=== PATIENT | female | born 1945 | race Caucasian/White ===

== ENCOUNTER → 2021-09-22 | Outpatient (CLI) | payer MEDICARE ==
--- NOTE | 2021-09-23 13:52 | MM ---
Reason for exam: screening (asymptomatic). Last mammogram was performed 19 years and 7 months ago. History: Patient is postmenopausal. Family history of breast cancer. Took estrogen for 3 years. Physical Findings: A clinical breast exam by your physician is recommended on an annual basis and results should be correlated with mammographic findings. MG 3D Screening Mammo W/Cad Bilateral CC and MLO view(s) were taken. No prior studies available for comparison. There are scattered fibroglandular densities. Finding: There is a 7 mm obscured oval mass in the middle, central position of the right breast. Focal asymmetry left central middle depth. ASSESSMENT: Incomplete: need additional imaging evaluation, BI-RAD 0 RECOMMENDATION: Special view mammogram of both breasts. If lesion persists on supplemental views, image directed ultrasound is recommended. [facility] will attempt to contact patient to return for supplemental views and ultrasound if indicated.
== END | disposition home or self-care (01) ==
LOC: RADMAMWWP 09:06
PROVIDERS: ATTEND Family Medicine
DX: Z12.31 Encounter for screening mammogram for malignant neoplasm of breast (principal); Z78.0 Asymptomatic menopausal state; Z80.3 Family history of malignant neoplasm of breast
CPT/HCPCS: 77063; 77067

== ENCOUNTER → 2021-09-28 | Outpatient (CLI) | payer MEDICARE ==
--- NOTE | 2021-09-29 10:11 | MM ---
Reason for exam: additional evaluation requested from abnormal screening. Last mammogram was performed less than 1 month ago. History: Patient is postmenopausal. Family history of breast cancer. Took estrogen for 3 years. Physical Findings: Nurse did not find any significant physical abnormalities on exam. MG 3D Work Up W/Cad FREDO Bilateral spot compression CC, spot compression MLO, and LM view(s) were taken. Prior study comparison: September 22, 2021, bilateral MG 3d screening mammo w/cad. There are scattered fibroglandular densities. Right 6mm oval nodule 9 o'clock along the retroareolar plane. Left small low density nodularity 4 o'clock, suspected small intramammary lymph nodes. These results were verbally communicated with the patient and result sheet given to the patient on 09/28/21. ASSESSMENT: Incomplete: need additional imaging evaluation, BI-RAD 0 RECOMMENDATION: Ultrasound of both breasts.
--- NOTE | 2021-09-29 10:12 | USB ---
Reason for exam: additional evaluation requested from abnormal screening. History: Patient is postmenopausal. Family history of breast cancer. Took estrogen for 3 years. US Breast Workup Limited FREDO Right limited breast ultrasound including focal area of concern, retroareolar and axilla demonstrates no cystic or solid lesion seen. Left limited breast ultrasound including focal area of concern, retroareolar and axilla demonstrates no cystic or solid lesion seen. Right breast scanned 8-10 o'clock, left breast scanned 3-5 o'clock. These results were verbally communicated with the patient and result sheet given to the patient on 09/28/21. ASSESSMENT: Probably benign, BI-RAD 3 RECOMMENDATION: Follow-up diagnostic mammogram of both breasts in 6 months.
== END | disposition home or self-care (01) ==
LOC: RADMAMWWP 14:15
PROVIDERS: ATTEND Family Medicine
DX: R92.8 Other abnormal and inconclusive findings on diagnostic imaging of breast (principal); Z78.0 Asymptomatic menopausal state; Z80.3 Family history of malignant neoplasm of breast
CPT/HCPCS: 77066; 76642; G0279; 77062

== ENCOUNTER 2021-10-06 11:03 | Day surgery (SDC) | payer MEDICARE ==
[2021-10-05 08:51] VITALS: BMI 31.3
[~2021-10-06 11:03] MED LIST: LACTATED RINGERS 1,000 ML IV SCH
[2021-10-06 11:32] VITALS: RESP 16; TEMP 97.3
[2021-10-06 11:32] LABS: Glucose,Whole Blood 107 mg/dL (75-99)
[2021-10-06] MEDS ORDERED: PROPOFOL 10 MG/ML 20 ML VIAL IV ONE (12:12)
--- NOTE | 2021-10-06 12:25 | P.PCN ---
Date of Procedure: 10/06/21 Procedure(s) Performed: BRIEF HISTORY: Patient is a 76-year-old pleasant female scheduled for an elective colonoscopy as a part of screening for colorectal neoplasia. Her last colonoscopy was 10 years ago. PROCEDURE PERFORMED: Colonoscopy. PREOPERATIVE DIAGNOSIS: Screening for colon cancer. IV sedation per Anesthesia. PROCEDURE: After informed consent was obtained, the patient, was brought into the endoscopy unit. IV sedation was administered by Anesthesia under continuous monitoring. Digital rectal examination was normal. Initially the Olympus CF-160 flexible video colonoscope was then inserted in the rectum, gradually advanced into the cecum without any difficulty. Careful examination was performed as the scope was gradually being withdrawn. Ileocecal valve and the appendiceal orifice were visualized and appeared normal. Prep was excellent. Mucosa of the cecum, ascending colon, transverse colon, descending colon, sigmoid colon, and rectum appeared normal. Retroflexion was performed in the rectum and no lesions were seen. The patient tolerated the procedure well. IMPRESSION: Normal-appearing colon from rectum to cecum with no evidence of colorectal neoplasia . RECOMMENDATIONS: Findings of this examination were discussed with the patient as well as her family. She was advised to have a repeat screening colonoscopy in 10 years..
[2021-10-06 12:44] VITALS: BP 122/68; PULSE 62
== END 2021-10-06 13:00 | disposition home or self-care (01) ==
LOC: ORWHC2ENDO 11:03
PROVIDERS: ATTEND Internal Medicine Gastroenterology
DX: Z12.11 Encounter for screening for malignant neoplasm of colon (principal); I10 Essential (primary) hypertension; E78.5 Hyperlipidemia, unspecified; E11.9 Type 2 diabetes mellitus without complications; K21.9 Gastro-esophageal reflux disease without esophagitis; Z90.49 Acquired absence of other specified parts of digestive tract; Z90.710 Acquired absence of both cervix and uterus; Z98.890 Other specified postprocedural states; Z79.84 Long term (current) use of oral hypoglycemic drugs; Z79.82 Long term (current) use of aspirin; Z79.899 Other long term (current) drug therapy; Z88.0 Allergy status to penicillin; Z88.2 Allergy status to sulfonamides
CPT/HCPCS: J2704; G0121

== ENCOUNTER 2023-01-07 15:04 | Inpatient (IN) | payer MEDICARE ==
[2023-01-07] MEDS ORDERED: SODIUM CHLORIDE 0.9% 1,000 ML IV STA ×2 (16:33→19:18)
[2023-01-07] MEDS ORDERED: ONDANSETRON 4 MG/2 ML VIAL IVP STA (16:33)
[2023-01-07] MEDS ORDERED: HYDROmorphone 0.5 MG/0.5 ML SYRINGE IVP STA (16:38)
[2023-01-07 17:04] LABS: Basophils % (A) 0 %; Eosinophils # (A) 0.1 k/uL (0-0.7); Eosinophils % (A) 1 %; HCT 44.7 % (34.0-46.0); HGB 15.2 gm/dL (11.4-16.0); Lymphocytes # (A) 0.7 k/uL (1.0-4.8); Lymphocytes % (A) 6 %; MCH 30.8 pg (25.0-35.0); MCHC 34.1 g/dL (31.0-37.0); MCV 90.5 fL (80.0-100.0); Mean Platelet Volume 7.6; Monocytes # (A) 0.5 k/uL (0-1.0); Monocytes % (A) 4 %; Neutrophils # (A) 11.2 k/uL (1.3-7.7); Neutrophils % (A) 89 %; Platelet Count 236 k/uL (150-450); RBC 4.94 m/uL (3.80-5.40); RDW 12.6 % (11.5-15.5); WBC 12.6 k/uL (3.8-10.6)
[2023-01-07 17:21] LABS: Albumin 4.2 g/dL (3.5-5.0); Calcium 9.7 mg/dL (8.4-10.2); Potassium 4.1 mmol/L (3.5-5.1); Total Bilirubin 1.6 mg/dL (0.2-1.3); Total Protein 7.1 g/dL (6.3-8.2)
--- NOTE | 2023-01-07 18:33 | CT ---
EXAMINATION TYPE: CT abdomen pelvis w con CT DLP: 655.2 mGycm, Automated exposure control for dose reduction was used. DATE OF EXAM: 01/07/2023 6:09 PM COMPARISON: None. CLINICAL INDICATION:Female, 77 years old with history of lower abd pain; lower abdominal pain TECHNIQUE: Axial CT of the abdomen and pelvis. Sagittal and coronal reformats were created on a [employer] workstation. Contrast used:100 mL of Isovue 300 with IV Contrast, Oral contrast used: without Oral Contrast FINDINGS: LOWER CHEST: Unremarkable ABDOMEN LIVER: Unremarkable GALLBLADDER AND BILE DUCTS: The gallbladder surgically absent. Possible dropped gallstone near the ga llbladder fossa peripherally calcified measuring up to 8 mm. PANCREAS: Unremarkable. SPLEEN: Unremarkable. ADRENAL GLANDS: Unremarkable. KIDNEYS AND URETERS: No evidence of hydronephrosis or renal calculus. The ureters are unremarkable. PELVIS BLADDER: Unremarkable REPRODUCTIVE: Unremarkable. ABDOMEN & PELVIS STOMACH AND BOWEL: Small hiatal hernia is present. No evidence of bowel obstruction. There is a high density objects within a blind-ending tibia structure felt to represent the appendix. The largest kelli suring 10 x 6 mm located at the ostium/base. There are a total of 5 appendicoliths present. There is fat stranding changes also present in the lower abdomen on the right. Blind-ending appendix is dilate d up to 16 mm. The large bowel is relatively decompressed. No evidence of organizing fluid collection or perforation. PERITONEUM/RETROPERITONEUM: No evidence of pneumoperitoneum or free fluid. VASCULATURE: Moderate atherosclerotic calcifications are present throughout the abdominal aorta and i ts branches. No evidence of aortic aneurysm. MUSCULOSKELETAL: No acute osseous abnormalities. Moderate disc degeneration changes are present throu ghout the thoracolumbar spine. LYMPH NODES: No gross evidence for lymphadenopathy. SOFT TISSUE/ABDOMINAL WALL: Unremarkable IMPRESSION: Blind-ending tubular structure thought to represent the appendix is dilated with multiple appendicoli ths. There is a 10 x 6 appendicolith at the ostium/base with a total of 5 appendicoliths present. Fin dings most compatible with acute appendicitis. No evidence for perforation.
[2023-01-07] MEDS ORDERED: metroNIDAZOLE-NS PMX 500 MG in SALINE 1 100ML.BAG IVPB STA (18:45)
[2023-01-07] MEDS ORDERED: LEVOFLOXACIN 500MG-D5W PMX 500 MG in DEXTROSE/WATER 1 100ML.BAG IVPB STA (18:46)
[2023-01-07 19:03] LABS: Appearance,Urine Clear (Clear); Bilirubin,Urine Negative (Negative); Blood,Urine Small (Negative); Color,Urine Light Yellow; Glucose,Urine (UA) 2+ (Negative); Leukocyte Esterase,Urine Negative (Negative); Mucus,Urine Rare /hpf; Nitrite,Urine Negative (Negative); Protein,Urine Negative (Negative); RBC,Urine 11 /hpf (0-5); Squamous Epithelial Cell,Urine 1 /hpf (0-4); Urobilinogen,Urine <2.0 mg/dL (<2.0); WBC,Urine 1 /hpf (0-5)
[2023-01-07] MEDS ORDERED: PROCHLORPERAZINE INJ 10 MG/2 ML VIAL IVP STA (19:07)
[2023-01-07] MEDS ORDERED: NALOXONE 0.4 MG/ML 1 ML VIAL IV PRN (19:15)
[2023-01-07 19:17] LABS: Ketones,Urine 2+ (Negative); Specific Gravity,Urine >1.050 (1.001-1.035)
[2023-01-07] MEDS ORDERED: ONDANSETRON 4 MG/2 ML VIAL IVP PRN (22:25)
[2023-01-07] MEDS ORDERED: MELATONIN 3 MG TABLET PO SCH (22:30)
[2023-01-07] MEDS ORDERED: LEVOFLOXACIN 500MG-D5W PMX 500 MG in DEXTROSE/WATER 1 100ML.BAG IVPB SCH (22:30)
[2023-01-07] MEDS ORDERED: ASPIRIN 81 MG PO SCH (22:30)
[2023-01-07] MEDS: HYDROmorphone 0.5 MG/0.5 ML SYRINGE IVP PRN (22:58)
--- NOTE | 2023-01-07 23:09 | ED ---
Abdominal Pain HPI - General Chief Complaint: Abdominal Pain Stated Complaint: ABD PAIN-VOMIT Time Seen by Provider: 01/07/23 16:33 Source: patient Mode of arrival: ambulatory Limitations: no limitations - History of Present Illness Initial Comments: Patient is 77-year-old female who presents to emergency department for abdominal pain. It started 3 days ago in the lower abdomen. Patient reports most pain in the left lower abdomen but does have some pain on the right. She has had nausea with multiple episodes of vomiting, nonbloody. She denies fever and chills. Denies constipation, diarrhea, blood in the stool, burning with urination, increased urinary frequency/urgency. Last colonoscopy was one year ago which patient states was normal. She has history of cholecystectomy. - Related Data Home Medications Medication Instructions Recorded Confirmed Aspirin [Adult Low Dose Aspirin EC] 81 mg PO HS 10/05/21 01/07/23 Melatonin 3 mg PO HS 10/05/21 01/07/23 Rosuvastatin [Crestor] 10 mg PO W/SUPPER 10/05/21 01/07/23 lisinopriL [Zestril] 5 mg PO W/SUPPER 10/05/21 01/07/23 Calcium Carbonate [Calcium] 600 mg PO DAILY 01/07/23 01/07/23 Cholecalciferol [Vitamin D3 (25 50 mcg PO DAILY 01/07/23 01/07/23 Mcg = 1000 Iu)] Magnesium Oxide [Magnesium] 500 mg PO DAILY 01/07/23 01/07/23 Multivitamins, Thera [Multivitamin 1 tab PO DAILY 01/07/23 01/07/23 (formulary)] Psyllium Husk [Metamucil] 0.4 gm PO DAILY 01/07/23 01/07/23 Allergies Allergy/AdvReac Type Severity Reaction Status Date / Time Penicillins Allergy Severe Burning Verified 01/07/23 19:44 Sensation, Rash Sulfa (Sulfonamide Allergy Unknown Unknown Verified 01/07/23 19:44 Antibiotics) Childhood Review of Systems ROS Statement: Those systems with pertinent positive or pertinent negative responses have been documented in the HPI. ROS Other: All systems not noted in ROS Statement are negative. Past Medical History Past Medical History: Asthma, Diabetes Mellitus History of Any Multi-Drug Resistant Organisms: None Reported Past Surgical History: No Surgical Hx Reported Past Psychological History: No Psychological Hx Reported Smoking Status: Never smoker Past Alcohol Use History: None Reported Past Drug Use History: None Reported General Exam Limitations: no limitations General appearance: alert, in no apparent distress Head exam: Present: atraumatic, normocephalic, normal inspection Respiratory exam: Present: normal lung sounds bilaterally. Absent: respiratory distress, wheezes, rales, rhonchi, stridor Cardiovascular Exam: Present: regular rate, normal rhythm, normal heart sounds. Absent: systolic murmur, diastolic murmur, rubs, gallop, clicks GI/Abdominal exam: Present: soft, tenderness (moderate lower abdomen), normal bowel sounds. Absent: distended, guarding, rebound, rigid Neurological exam: Present: alert, oriented X3, CN II-XII intact Psychiatric exam: Present: normal affect, normal mood Skin exam: Present: warm, dry, intact, normal color. Absent: rash Course Vital Signs 01/07/23 01/07/23 15:05 20:45 Temperature 98.4 F Pulse Rate 92 69 Respiratory 20 16 Rate Blood Pressure 146/79 144/72 O2 Sat by Pulse 100 97 Oximetry Medical Decision Making - Medical Decision Making Was pt. sent in by a medical professional or institution (, PA, FLOTATION TENDER, urgent care, hospital, or custodial...) When possible be specific @ -No Did you speak to anyone other than the patient for history (EMS, parent, family, police, friend...)? What history was obtained from this source @ -No Did you review nursing and triage notes (agree or disagree)? Why? @ -I reviewed and agree with nursing and triage notes Were old charts reviewed (outside hosp., previous admission, EMS record, old EKG, old radiological studies, urgent care reports/EKG's, custodial records)? Report findings @ -No old charts were reviewed Differential Diagnosis (chest pain, altered mental status, abdominal pain women, abdominal pain men, vaginal bleeding, weakness, fever, dyspnea, syncope, headache, dizziness, GI bleed, back pain, seizure, CVA, palpatations, mental health)? @ -Differential Abdominal Pain Women: Appendicitis, Cholecystitis, diverticulosis, ischemic bowel, pancreatitis, hepatitis, UTI, gastroenteritis, AAA, incarcerated hernia, bowel obstruction, constipation, inflammatory bowel, hepatitis, peptic ulcer disease, splenic infarction, perforated viscus, vulvitis, ovarian torsion, PID, kidney stone, placenta abruption, this is not meant to be an all-inclusive list EKG interpreted by me (3pts min.). @ -As above X-rays interpreted by me (1pt min.). @ -None done CT interpreted by me (1pt min.). @ -Yes showing appendicitis without perforation U/S interpreted by me (1pt. min.). @ -None done What testing was considered but not performed or refused? (CT, X-rays, U/S, labs)? Why? @ -None What meds were considered but not given or refused? Why? @ -None Did you discuss the management of the patient with other professionals (professionals i.e. Dr., PA, FLOTATION TENDER, lab, RT, psych nurse, social work nurse, integration manager, teacher, radiation safety officer, case resource manager)? Give summary @ -No Was smoking cessation discussed for >3mins.? @ -No Was critical care preformed (if so, how long)? @ -No Were there social determinants of health that impacted care today? How? (Homelessness, low income, unemployed, alcoholism, drug addiction, transportation, low edu. Level, literacy, decrease access to med. care, [place] [facility], rehab)? @ -No Was there de-escalation of care discussed even if they declined (Discuss DNR or withdrawal of care, Hospice)? DNR status @ -No What co-morbidities impacted this encounter? (DM, HTN, Smoking, COPD, CAD, Cancer, CVA, ARF, Chemo, Hep., AIDS, mental health diagnosis, sleep apnea, morbid obesity)? @ -None Was patient admitted / discharged? Hospital course, mention meds given and route, prescriptions, significant lab abnormalities, going to OR and other pertinent info. @ -Admitted to Dr. Joseph for appendicitis Undiagnosed new problem with uncertain prognosis? @ -No Drug Therapy requiring intensive monitoring for toxicity (Heparin, Nitro, Insulin, Cardizem)? @ -No Were any procedures done? @ -No Diagnosis/symptom? @ -default Acute, or Chronic, or Acute on Chronic? @ -appendicitis Uncomplicated (without systemic symptoms) or Complicated (systemic symptoms)? @ -uncomplicated Side effects of treatment? @ -[No] Exacerbation, Progression, or Severe Exacerbation? @ -[No] Poses a threat to life or bodily function? How? (Chest pain, [place], [place], pneumonia, PE, COPD, DKA, ARF, appy, cholecystitis, CVA, Diverticulitis, Homicidal, Suicidal, threat to staff... and all critical care pts) @ -Yes Dr. Aguilar is my attending - Lab Data Result diagrams: 01/07/23 16:49 01/07/23 16:49 Lab Results 01/07/23 01/07/23 01/07/23 Range/Units 16:49 16:49 16:49 WBC 12.6 H (3.8-10.6) k/uL RBC 4.94 (3.80-5.40) m/uL Hgb 15.2 (11.4-16.0) gm/dL Hct 44.7 (34.0-46.0) % MCV 90.5 (80.0-100.0) fL MCH 30.8 (25.0-35.0) pg MCHC 34.1 (31.0-37.0) g/dL RDW 12.6 (11.5-15.5) % Plt Count 236 (150-450) k/uL MPV 7.6 Neutrophils % 89 % Lymphocytes % 6 % Monocytes % 4 % Eosinophils % 1 % Basophils % 0 % Neutrophils # 11.2 H (1.3-7.7) k/uL Lymphocytes # 0.7 L (1.0-4.8) k/uL Monocytes # 0.5 (0-1.0) k/uL Eosinophils # 0.1 (0-0.7) k/uL Basophils # 0.0 (0-0.2) k/uL Sodium 137 (137-145) mmol/L Potassium 4.1 (3.5-5.1) mmol/L Chloride 99 (98-107) mmol/L Carbon Dioxide 30 (22-30) mmol/L Anion Gap 8 mmol/L BUN 17 (7-17) mg/dL Creatinine 0.85 (0.52-1.04) mg/dL Est GFR (CKD-EPI)AfAm 78 (>60 ml/min/1.73 sqM) Est GFR (CKD-EPI)NonAf 68 (>60 ml/min/1.73 sqM) Glucose 138 H (74-99) mg/dL Plasma Lactic Acid Chin 1.0 (0.7-2.0) mmol/L Calcium 9.7 (8.4-10.2) mg/dL Total Bilirubin 1.6 H (0.2-1.3) mg/dL AST 28 (14-36) U/L ALT 24 (4-34) U/L Alkaline Phosphatase 58 (38-126) U/L Total Protein 7.1 (6.3-8.2) g/dL Albumin 4.2 (3.5-5.0) g/dL Lipase 70 (23-300) U/L Urine Color Urine Appearance (Clear) Urine pH (5.0-8.0) Ur Specific [place] (1.001-1.035) Urine Protein (Negative) Urine Glucose (UA) (Negative) Urine Ketones (Negative) Urine Blood (Negative) Urine Nitrite (Negative) Urine Bilirubin (Negative) Urine Urobilinogen (<2.0) mg/dL Ur Leukocyte Esterase (Negative) Urine RBC (0-5) /hpf Urine WBC (0-5) /hpf Ur Squamous Epith Cells (0-4) /hpf Urine Mucus (None) /hpf 01/07/23 Range/Units 18:22 WBC (3.8-10.6) k/uL RBC (3.80-5.40) m/uL Hgb (11.4-16.0) gm/dL Hct (34.0-46.0) % MCV (80.0-100.0) fL MCH (25.0-35.0) pg MCHC (31.0-37.0) g/dL RDW (11.5-15.5) % Plt Count (150-450) k/uL MPV Neutrophils % % Lymphocytes % % Monocytes % % Eosinophils % % Basophils % % Neutrophils # (1.3-7.7) k/uL Lymphocytes # (1.0-4.8) k/uL Monocytes # (0-1.0) k/uL Eosinophils # (0-0.7) k/uL Basophils # (0-0.2) k/uL Sodium (137-145) mmol/L Potassium (3.5-5.1) mmol/L Chloride (98-107) mmol/L Carbon Dioxide (22-30) mmol/L Anion Gap mmol/L BUN (7-17) mg/dL Creatinine (0.52-1.04) mg/dL Est GFR (CKD-EPI)AfAm (>60 ml/min/1.73 sqM) Est GFR (CKD-EPI)NonAf (>60 ml/min/1.73 sqM) Glucose (74-99) mg/dL Plasma Lactic Acid Chin (0.7-2.0) mmol/L Calcium (8.4-10.2) mg/dL Total Bilirubin (0.2-1.3) mg/dL AST (14-36) U/L ALT (4-34) U/L Alkaline Phosphatase (38-126) U/L Total Protein (6.3-8.2) g/dL Albumin (3.5-5.0) g/dL Lipase (23-300) U/L Urine Color Light Yellow Urine Appearance Clear (Clear) Urine pH 5.0 (5.0-8.0) Ur Specific [place] >1.050 H (1.001-1.035) Urine Protein Negative (Negative) Urine Glucose (UA) 2+ H (Negative) Urine Ketones 2+ H (Negative) Urine Blood Small H (Negative) Urine Nitrite Negative (Negative) Urine Bilirubin Negative (Negative) Urine Urobilinogen <2.0 (<2.0) mg/dL Ur Leukocyte Esterase Negative (Negative) Urine RBC 11 H (0-5) /hpf Urine WBC 1 (0-5) /hpf Ur Squamous Epith Cells 1 (0-4) /hpf Urine Mucus Rare H (None) /hpf Disposition Clinical Impression: Appendicitis Disposition: ADMITTED IP TO THIS HOSP Condition: Stable
[2023-01-08] MEDS: HYDROmorphone 0.5 MG/0.5 ML SYRINGE IVP PRN (08:24)
[2023-01-08] MEDS: PANTOPRAZOLE 40 MG/10 ML VIAL IVP SCH (08:24)
[2023-01-08] MEDS ORDERED: CALCIUM CARBONATE 500 MG CHEWABLE PO SCH (09:00)
[2023-01-08] MEDS ORDERED: PSYLLIUM HUSK 100% 6 GM PACKET PO SCH (09:00)
[2023-01-08] MEDS ORDERED: CHOLECALCIFEROL 25 MCG (1000 IU) TABLET PO SCH (09:00)
[2023-01-08] MEDS ORDERED: MAGNESIUM OXIDE 400 MG TAB PO SCH (09:00)
[2023-01-08] MEDS ORDERED: MULTIVITAMINS, THERA 1 EACH TAB PO SCH (09:00)
[2023-01-08] MEDS ORDERED: HEPARIN SODIUM,PORCINE/PF 5,000 UNIT/0.5 ML SYRINGE SQ PRN (09:50)
--- NOTE | 2023-01-08 09:52 | P.GSHP ---
History of Present Illness H&P Date: 01/08/23 CHIEF COMPLAINT: Right lower quadrant abdominal pain with appendicitis for 3 days HISTORY OF PRESENT ILLNESS: The patient is a 77-year-old female who presents with 3-4 days of lower abdominal pain and suprapubic to left lower quadrant pain.. She was traveling from [place] and reported constipation. She reports lifelong constipation. Her pain became more severe in the last 24 hours. No blood in stools. Last colonoscopy a year ago. Diagnostic studies demonstrated appendicitis. Patient is admitted for appendectomy. PAST MEDICAL HISTORY: Denies PAST SURGICAL HISTORY: Denies CURRENT MEDICATIONS: Denies ALLERGIES: Codeine SOCIAL HISTORY: Non-tobacco user. FAMILY HISTORY: Denies Crohns disease and ulcerative colitis. REVIEW OF ORGAN SYSTEMS: CONSTITUTIONAL: Denies any fever or chills. HEENT: Denies any trouble with vision, hearing or nosebleeds. No difficulty swallowing. LYMPHATIC: The patient denies any lumps and bumps around the neck. ENDOCRINE: Denies any thyroid disorders. Past history of diabetes RESPIRATORY: Denies shortness of breath including chronic cough. Past history of asthma CARDIOVASCULAR: Denies history of chest pain with exertion. Has hypertension and hyperlipidemia. GASTROINTESTINAL: Denies regurgitation of bile at night as well as intermittent nausea. No blood in stools. She reports past history of cholecystectomy. GENITOURINARY: Denies any blood in urine or increased urinary frequency. MUSCULOSKELETAL: Denies current joint arthritis. NEUROLOGIC: Denies any numbness or tingling along the distal extremities. No seizure disorders or headaches. PSYCHIATRIC: Denies any depression or suicidal ideation. HEMATOLOGIC: Denies any abnormal bleeding or bruising. GENERAL MEDICAL CARE: The patient sees primary care physician regularly. PHYSICAL EXAMINATION: Vital signs: Reviewed GENERAL: Well developed and in no acute distress. HEENT: No sclera icterus. Extraocular movements grossly intact. Moist buccal mucosa. Head is atraumatic, normocephalic. Hears conversational speech. No nasal drainage. NECK: Supple without lymphadenopathy. No JV distention. CHEST: Non-labored respirations and equal bilateral excursions. CARDIOVASCULAR: Regular rate and rhythm. Palpable 2+ radial pulses. ABDOMEN: Soft, tender at the lower abdomen and suprapubic area MUSCULOSKELETAL: No clubbing, cyanosis or edema. NEUROLOGIC: No focal or lateralizing signs. PSYCH: Appropriate affect. Alert and oriented to person, place and time. SKIN: Well perfused. Good skin turgor. LABS: WBC over 12,000. Urinalysis demonstrates ketones and glucose. Total bilirubin elevated 1.6. STUDIES: CT of the abdomen and pelvis independently reviewed with multiple appendicoliths and dilated appendix extending along the suprapubic to left lower quadrant. This is more independent interpretation. REPORT: CT abdomen and pelvis demonstrates multiple appendicoliths and appendicitis. ASSESSMENT: 1. Appendicitis. 2. Hypertensive heart disease 3. Hyperlipidemia 4. Personal history of asthma 5. Elevated bilirubin level 6. Personal history diabetes type 2, [id number] 7. Hyperglycemia with diabetes type 2 PLAN: 1. I have discussed benefits and risks of robotic appendectomy. 2. Antibiotics Levaquin and Flagyl. 3. Heparin for DVT prophylaxis 4. 12-lead EKG due to pre-existing history of heart disease and hyperlipidemia 5. Patient is elevated risk due to comorbidities hypertensive heart disease, diabetes type 2 with hyperglycemia Past Medical History Past Medical History: Asthma, Diabetes Mellitus History of Any Multi-Drug Resistant Organisms: None Reported Past Surgical History: No Surgical Hx Reported Past Psychological History: No Psychological Hx Reported Smoking Status: Never smoker Past Alcohol Use History: None Reported Past Drug Use History: None Reported Medications and Allergies Home Medications Medication Instructions Recorded Confirmed Type Aspirin [Adult Low Dose Aspirin EC] 81 mg PO HS 10/05/21 01/07/23 History Melatonin 3 mg PO HS 10/05/21 01/07/23 History Rosuvastatin [Crestor] 10 mg PO W/SUPPER 10/05/21 01/07/23 History lisinopriL [Zestril] 5 mg PO W/SUPPER 10/05/21 01/07/23 History Calcium Carbonate [Calcium] 600 mg PO DAILY 01/07/23 01/07/23 History Cholecalciferol [Vitamin D3 (25 50 mcg PO DAILY 01/07/23 01/07/23 History Mcg = 1000 Iu)] Magnesium Oxide [Magnesium] 500 mg PO DAILY 01/07/23 01/07/23 History Multivitamins, Thera [Multivitamin 1 tab PO DAILY 01/07/23 01/07/23 History (formulary)] Psyllium Husk [Metamucil] 0.4 gm PO DAILY 01/07/23 01/07/23 History Allergies Allergy/AdvReac Type Severity Reaction Status Date / Time Penicillins Allergy Severe Burning Verified 01/07/23 19:44 Sensation, Rash Sulfa (Sulfonamide Allergy Unknown Unknown Verified 01/07/23 19:44 Antibiotics) Childhood Surgical - Exam Vital Signs Temp Pulse Resp BP Pulse Ox 98.4 F 92 20 146/79 100 01/07/23 15:05 01/07/23 15:05 01/07/23 15:05 01/07/23 15:05 01/07/23 15:05 Results - Labs 01/07/23 16:49 01/07/23 16:49 Abnormal Lab Results - Last 24 Hours (Table) 01/07/23 01/07/23 01/07/23 Range/Units 16:49 16:49 18:22 WBC 12.6 H (3.8-10.6) k/uL Neutrophils # 11.2 H (1.3-7.7) k/uL Lymphocytes # 0.7 L (1.0-4.8) k/uL Glucose 138 H (74-99) mg/dL Total Bilirubin 1.6 H (0.2-1.3) mg/dL Ur Specific [place] >1.050 H (1.001-1.035) Urine Glucose (UA) 2+ H (Negative) Urine Ketones 2+ H (Negative) Urine Blood Small H (Negative) Urine RBC 11 H (0-5) /hpf Urine Mucus Rare H (None) /hpf Diabetes panel 01/07/23 Range/Units 16:49 Sodium 137 (137-145) mmol/L Potassium 4.1 (3.5-5.1) mmol/L Chloride 99 (98-107) mmol/L Carbon Dioxide 30 (22-30) mmol/L BUN 17 (7-17) mg/dL Creatinine 0.85 (0.52-1.04) mg/dL Glucose 138 H (74-99) mg/dL Calcium 9.7 (8.4-10.2) mg/dL AST 28 (14-36) U/L ALT 24 (4-34) U/L Alkaline Phosphatase 58 (38-126) U/L Total Protein 7.1 (6.3-8.2) g/dL Albumin 4.2 (3.5-5.0) g/dL Calcium panel 01/07/23 Range/Units 16:49 Calcium 9.7 (8.4-10.2) mg/dL Albumin 4.2 (3.5-5.0) g/dL Pituitary panel 01/07/23 Range/Units 16:49 Sodium 137 (137-145) mmol/L Potassium 4.1 (3.5-5.1) mmol/L Chloride 99 (98-107) mmol/L Carbon Dioxide 30 (22-30) mmol/L BUN 17 (7-17) mg/dL Creatinine 0.85 (0.52-1.04) mg/dL Glucose 138 H (74-99) mg/dL Calcium 9.7 (8.4-10.2) mg/dL Adrenal panel 01/07/23 Range/Units 16:49 Sodium 137 (137-145) mmol/L Potassium 4.1 (3.5-5.1) mmol/L Chloride 99 (98-107) mmol/L Carbon Dioxide 30 (22-30) mmol/L BUN 17 (7-17) mg/dL Creatinine 0.85 (0.52-1.04) mg/dL Glucose 138 H (74-99) mg/dL Calcium 9.7 (8.4-10.2) mg/dL Total Bilirubin 1.6 H (0.2-1.3) mg/dL AST 28 (14-36) U/L ALT 24 (4-34) U/L Alkaline Phosphatase 58 (38-126) U/L Total Protein 7.1 (6.3-8.2) g/dL Albumin 4.2 (3.5-5.0) g/dL
[2023-01-08] MEDS ORDERED: LIDOCAINE 2% INJ 20 MG/ML (2 ML VIAL) ONE (10:12)
[2023-01-08] MEDS ORDERED: MIDAZOLAM 2 MG/2 ML VIAL ONE (10:12)
[2023-01-08] MEDS ORDERED: fentaNYL (PF) 50 MCG/ML 2 ML AMP ONE (10:12)
[2023-01-08] MEDS ORDERED: PROPOFOL 10 MG/ML 20 ML VIAL IV ONE (10:12)
[2023-01-08] MEDS ORDERED: GLYCOPYRROLATE 0.2 MG/ML 2 ML VIAL ONE (10:12)
[2023-01-08] MEDS ORDERED: NEOSTIGMINE 1 MG/ML 10 ML VIAL ONE (10:12)
[2023-01-08] MEDS ORDERED: ROCURONIUM 10 MG/ML (5 ML VIAL) IV ONE (10:12)
[2023-01-08] MEDS ORDERED: SODIUM CHLORIDE 0.9% 1,000 ML IV ONE ×2 (10:17→12:24)
[2023-01-08] MEDS ORDERED: LIDOCAINE 0.5%-EPI 1:200,000 50 ML VIAL SQ ONE ×2 (10:34→10:44)
[2023-01-08] MEDS ORDERED: LACTATED RINGERS 1,000 ML IV ONE ×3 (10:42→12:40)
--- NOTE | 2023-01-08 12:33 | P.OP ---
Date of Procedure: 01/08/23 Description of Procedure: SURGEON: DARNELL HAMMER MD Preoperative Diagnosis: 1. Acute appendicitis 2. Diabetes type 2 [id number] 3. Diabetes type 2 with hyperglycemia 4. Hypertensive heart disease 5. History of asthma Postoperative Diagnosis: 1. Acute appendicitis with rupture, localized peritonitis 2. Intra-abdominal peritoneal adhesions from prior surgery 3. Ileus 4. Diabetes type 2 [id number] 5. Diabetes type 2 with hyperglycemia 6. Hypertensive heart disease 7. History of asthma Procedure(s) Performed: 1. Robotic-assisted daVinci Xi laparoscopic lysis of adhesions over 30 minutes 2. Robotic-assisted daVinci Xi laparoscopic appendectomy Anesthesia: GETA, local Estimated Blood Loss (ml): 10 Pathology: other (appendix), aerobic and anaerobic cultures Condition: stable Disposition: floor Operative Findings: 1. Acute appendicitis with rupture at the base of the appendix and localized peritonitis 2. Ileus 3. Staple fired at base of the appendix with encroachment at ileocecal valve 4. Lower midline adhesions omentum to the abdominal wall was identified from prior surgery. INDICATIONS: The patient is a 77-year-old female who presents with acute appendicitis, 4 days. Benefits and risks, including infection, open surgery, and bleeding for additional surgery was discussed at length. Informed consent was obtained. All questions of the patient and family were answered. DESCRIPTION: The patient was transferred to the operating room and placed in supine position. The abdomen was then prepped and draped in standard sterile fashion as Ioban was placed along the abdomen to minimize any contamination of skin floor. After a timeout protocol was performed, attention was then brought to the left upper quadrant whereby a 0 degree 5 mm laparoscopic trocar entry was performed. The abdominal cavity was entered and insufflated to 12 mmHg pressure, which was tolerated well. Diagnostic laparoscopy demonstrated no injury to bowel, viscera or mesentery. Lower midline adhesions omentum to the abdominal wall was identified from prior surgery. Next a robotic 8-mm trocar was placed along the left lower quadrant, 10-cm lateral to the midline. A 12 mm port was placed along the left upper quadrant and another 8-mm port left lateral abdominal wall. Ports were placed 9 cm apart from each other including 15-20 cm away from the target anatomy of the right pelvis. The patient was then placed in Trendelenburg position, at least 7 down and right side up at least 7. The robotic da Cesilia XI system was primed and docked from the left side of the patient. Using atraumatic graspers and vessel sealer, the robotic system was docked and p rimed as described. Instruments were interchanged by the clinical trials assistant including graspers, robotic stapler and vessel sealer. Next, attention was brought to identify the adhesions which were sharply lysed using vessel sealer for over 30 minutes, omentum to the abdominal wall. Next the cecum was evaluated. A systematic view within the abdominal cavity was started with the small bowel demonstrating mild ileus The base of the cecum demonstrated inflammation at the base of the appendix. The appendix was retroperitoneal coursing above the bladder toward the left lower abdomen. The appendix had dense inflammatory reaction involving the small bowel mesentery requiring additional dissection. The base of the cecum was mobilized away from the pelvic and abdominal wall to allow for resection of the appendix. At the base of the appendix, recent perforation was identified with appendicolith at the base. Green 45 mm robotic staple loads 2 were fired along the base of the appendix with encroachment at the ileocecal valve due to the perforation at the base of the appendix. The staple line was hemostatic. The abdomen was irrigated with 1 L normal saline until the effluent was clear. The surgical bed was completely dry. Hemostasis was checked prior to undocking the robot. The robot was undocked. I re-scrubbed into the case. The specimen was removed from the abdominal cavity with an Endo Catch bag through the 12 mm trocar at the left upper quadrant. All instruments and pneumoperitoneum were evacuated from the abdominal cavity. Local anesthetic was infiltrated to all wounds for postop analgesia. All incisions were also cleansed with diluted hydrogen peroxide. The incisions were closed with 4-0 Monocryl. Exofin glue was applied to the rest of the skin incisions. Optifoam dressing was placed at the left upper quadrant extraction site. Aerobic and anaerobic cultures were obtained along the back table from the specimen bag. The patient had tolerated the procedure well. The patient was extubated with bile identified consistent with ileus. The patient was transferred to the postanesthesia care unit in stable condition. With findings above, inpatient hospitalization over 2 nights described to address ileus and perforated appendicitis with intravenous antibiotics.
[2023-01-08] MEDS ORDERED: HYDROmorphone 1 MG/ML 1 ML SYRINGE IVP PRN (12:35)
[2023-01-08] MEDS: METOCLOPRAMIDE 5 MG/ML 2 ML VIAL IVP SCH ×3 (12:56→23:22)
[2023-01-08] MEDS: DEXAMETHASONE SOD PHOSPHATE 4 MG/ML 1 ML VIAL IVP SCH ×3 (12:56→23:22)
[2023-01-08] MEDS ORDERED: DEXTROSE 50% SYRINGE 50 ML IVP PRN ×2 (16:09)
--- NOTE | 2023-01-08 16:12 | P.CONS ---
History of Present Illness - Reason for Consult Consult date: 01/08/23 medical management Requesting physician: Radha Díaz - Chief Complaint Abdominal pain - History of Present Illness This is a 77 year old female with medical history of diabetes mellitus, asthma, hyperlipidemia, hypertension, cholecystectomy. Patient presents to the hospital with abdominal pain in the lower abdomen ongoing over the last 3 days with associated nausea and vomiting. Patient has not had fever at home. Denies any shortness of breath or chest pain. Has not had any diarrhea. Has had poor oral intake. Abdominal/pelvis CT showing blind-ending tubular structure though to represent the appendix is dilated with multiple appendicoliths, most compatible for acute appendicitis. CT shows no evidence of perforation. Patient is admitted to the hospital admitted to general surgery and has been taken to the OR by Dr. Joseph. Patient had acute appendicitis with rupture and localized peritonitis, there is intra-abdominal peritoneal adhesions from prior surgery, and ileus. Patient is started on IV levofloxacin, and IV zosyn. Patient is evaluated postoperatively on the medical floor sleepy recovering from anesthesia reports pain as tolerable currently. Blood pressure in the 110s systolic and recommending to hold lisinopril at this time and continue with hydration. Patient will have follow up labs. REVIEW OF SYSTEMS: CONSTITUTIONAL: No fever, no malaise, no fatigue. HEENT: No recent visual problems or hearing problems. Denied any sore throat. CARDIOVASCULAR: No chest pain, orthopnea, PND, no palpitations, no syncope. PULMONARY: No shortness of breath, no cough, no hemoptysis. GASTROINTESTINAL: No diarrhea, no nausea, no vomiting. Reports abdominal pain. NEUROLOGICAL: No headaches, no weakness, no numbness. HEMATOLOGICAL: Denies any bleeding or petechiae. GENITOURINARY: Denies any burning micturition, frequency, or urgency. MUSCULOSKELETAL/RHEUMATOLOGICAL: Denies any joint pain, swelling, or any muscle pain. ENDOCRINE: Denies any polyuria or polydipsia. The rest of the 14-point review of systems is negative. PHYSICAL EXAMINATION: GENERAL: The patient is alert and oriented x3, not in any acute distress. Well developed, well nourished. HEENT: Pupils are round and equally reacting to light. EOMI. No scleral icterus. No conjunctival pallor. Normocephalic, atraumatic. No pharyngeal erythema. No thyromegaly. CARDIOVASCULAR: S1 and S2 present. No murmurs, rubs, or gallops. PULMONARY: Chest is clear to auscultation, no wheezing or crackles. ABDOMEN: Soft, tender, nondistended, normoactive bowel sounds. No palpable organ omegaly. Post surgical abdomen. Incisions intact. MUSCULOSKELETAL: No joint swelling or deformity. EXTREMITIES: No cyanosis, clubbing, or pedal edema. NEUROLOGICAL: Gross neurological examination did not reveal any focal deficits. SKIN: No rashes. Assessment Acute abdominal pain with nausea/vomiting Acute appendicitis with rupture and localized peritonitis s/p laproscopic appendectomy Leukocytosis History of hypertension currently normotensive History of asthma with no acute exacerbation Diabetes mellitus type 2 GI prophylaxis DVT prophylaxis Full Code Plan Continue on IV antibiotics per primary with IV zosyn, IV levaquin. Patient to continue on pain management and bowel regimen Diet as per primary with water guidelines, ice chips and popsicles. Recommend holding lisinoprial to avoid postoperative hypotension Accuchecks in place ACHS with sliding scale insulin coverage A1C will be checked History of hyperlipidemia resumed on statin Patient will be given incentive spirometer encourage to use 10 x an hour while awake Increase activity as tolerated The impression and plan of care has been dictated by Connie Spicer Nurse Practitioner as directed. Dr. Mone MD I have performed a history and physical examination and medical decision making of this patient, discussed the same with the dictator, and agree with the dictators assessment and plan as written, documented as a scribe. Based on total visit time, I have performed more than 50% of this visit. Past Medical History Past Medical History: Asthma, Diabetes Mellitus History of Any Multi-Drug Resistant Organisms: None Reported Past Surgical History: No Surgical Hx Reported Past Psychological History: No Psychological Hx Reported Smoking Status: Never smoker Past Alcohol Use History: None Reported Past Drug Use History: None Reported Medications and Allergies Home Medications Medication Instructions Recorded Confirmed Type Aspirin [Adult Low Dose Aspirin EC] 81 mg PO HS 10/05/21 01/07/23 History Melatonin 3 mg PO HS 10/05/21 01/07/23 History Rosuvastatin [Crestor] 10 mg PO W/SUPPER 10/05/21 01/07/23 History lisinopriL [Zestril] 5 mg PO W/SUPPER 10/05/21 01/07/23 History Calcium Carbonate [Calcium] 600 mg PO DAILY 01/07/23 01/07/23 History Cholecalciferol [Vitamin D3 (25 50 mcg PO DAILY 01/07/23 01/07/23 History Mcg = 1000 Iu)] Magnesium Oxide [Magnesium] 500 mg PO DAILY 01/07/23 01/07/23 History Multivitamins, Thera [Multivitamin 1 tab PO DAILY 01/07/23 01/07/23 History (formulary)] Psyllium Husk [Metamucil] 0.4 gm PO DAILY 01/07/23 01/07/23 History Allergies Allergy/AdvReac Type Severity Reaction Status Date / Time Penicillins Allergy Severe Burning Verified 01/07/23 19:44 Sensation, Rash Sulfa (Sulfonamide Allergy Unknown Unknown Verified 01/07/23 19:44 Antibiotics) Childhood Physical Exam Vitals: Vital Signs Temp Pulse Pulse Resp BP BP Pulse Ox 01/08/23 13:59 98.7 F 72 17 115/60 96 01/08/23 13:44 79 116/61 97 01/08/23 13:30 98 F 77 12 110/57 94 L 01/08/23 13:29 67 110/57 93 L 01/08/23 13:25 67 116/60 92 L 01/08/23 12:59 75 18 120/63 94 L 01/08/23 12:44 74 16 118/52 93 L 01/08/23 12:29 70 16 119/56 94 L 01/08/23 12:14 78 16 136/62 100 01/08/23 11:59 97 F L 79 16 134/54 100 01/08/23 07:08 98.5 F 72 15 121/65 94 L 01/08/23 02:54 98.1 F 74 15 126/68 96 01/08/23 02:00 16 01/07/23 21:51 98.2 F 70 16 131/71 95 01/07/23 20:45 69 16 144/72 97 Intake and Output 01/08/23 01/08/23 01/08/23 06:59 14:59 22:59 Intake Total 1450 Output Total 10 Balance 1440 Intake: IV 1450 Output: Estimated Blood Loss 10 Other: Voiding Method Toilet # Voids 2 1 Weight 58.967 kg Results CBC & Chem 7: 01/07/23 16:49 01/07/23 16:49 Labs: Abnormal Lab Results - Last 24 Hours (Table) 01/07/23 01/07/23 01/07/23 Range/Units 16:49 16:49 18:22 WBC 12.6 H (3.8-10.6) k/uL Neutrophils # 11.2 H (1.3-7.7) k/uL Lymphocytes # 0.7 L (1.0-4.8) k/uL Glucose 138 H (74-99) mg/dL Total Bilirubin 1.6 H (0.2-1.3) mg/dL Ur Specific [place] >1.050 H (1.001-1.035) Urine Glucose (UA) 2+ H (Negative) Urine Ketones 2+ H (Negative) Urine Blood Small H (Negative) Urine RBC 11 H (0-5) /hpf Urine Mucus Rare H (None) /hpf
[2023-01-08] MEDS: PIPERACILLIN-TAZOBACTAM 3.375 GM in SODIUM CHLORIDE 0.9% 100 ML IVPB SCH ×2 (16:16→23:21)
[2023-01-08] MEDS: SODIUM CHLORIDE 0.9% 1,000 ML IV SCH (16:16)
[2023-01-08 17:18] LABS: Glucose,Whole Blood 140 mg/dL (70-110)
[2023-01-08] MEDS ORDERED: lisinopriL 5 MG TAB PO SCH (17:30)
[2023-01-08] MEDS ORDERED: ATORVASTATIN 20 MG TAB PO SCH (17:30)
[2023-01-08] MEDS: INSULIN ASPART (NovoLOG) 100 UNIT/ML VIAL SQ SCH ×2 (17:44→21:23)
[2023-01-08] MEDS: ACETAMINOPHEN IV (For NPO) 1,000 MG in EMPTY BAG 1 BAG IVPB SCH ×2 (18:00→23:22)
[2023-01-08] MEDS: KETOROLAC 15 MG/ML 1 ML VIAL IVP SCH ×2 (18:01→23:22)
[2023-01-08] MEDS: diphenhydrAMINE 50 MG/ML 1 ML VIAL IVP SCH ×2 (18:01→23:21)
[2023-01-08] MEDS ORDERED: LEVOFLOXACIN 500MG-D5W PMX 500 MG in DEXTROSE/WATER 1 100ML.BAG IVPB SCH (19:00)
[2023-01-08] MEDS: ONDANSETRON 4 MG/2 ML VIAL IVP SCH (20:08)
[2023-01-08] MEDS: HEPARIN SODIUM,PORCINE/PF 5,000 UNIT/0.5 ML SYRINGE SQ SCH (20:09)
[2023-01-08 20:57] LABS: Glucose,Whole Blood 174 mg/dL (70-110)
[2023-01-09] MEDS: ONDANSETRON 4 MG/2 ML VIAL IVP SCH ×3 (00:56→11:31)
[2023-01-09] MEDS: ACETAMINOPHEN IV (For NPO) 1,000 MG in EMPTY BAG 1 BAG IVPB SCH ×2 (06:14→11:31)
[2023-01-09] MEDS: diphenhydrAMINE 50 MG/ML 1 ML VIAL IVP SCH ×2 (06:14→11:30)
[2023-01-09 06:15] LABS: Basophils % (A) 0 %; Eosinophils % (A) 0 %; HCT 39.3 % (34.0-46.0); HGB 12.9 gm/dL (11.4-16.0); Lymphocytes # (A) 0.4 k/uL (1.0-4.8); Lymphocytes % (A) 5 %; MCH 30.3 pg (25.0-35.0); MCHC 32.9 g/dL (31.0-37.0); Mean Platelet Volume 7.8; Monocytes # (A) 0.3 k/uL (0-1.0); Monocytes % (A) 4 %; Neutrophils # (A) 7.8 k/uL (1.3-7.7); Neutrophils % (A) 90 %; Platelet Count 209 k/uL (150-450); RBC 4.27 m/uL (3.80-5.40); RDW 12.7 % (11.5-15.5); WBC 8.7 k/uL (3.8-10.6)
[2023-01-09] MEDS: KETOROLAC 15 MG/ML 1 ML VIAL IVP SCH ×2 (06:15→11:30)
[2023-01-09] MEDS: DEXAMETHASONE SOD PHOSPHATE 4 MG/ML 1 ML VIAL IVP SCH ×2 (06:15→11:30)
[2023-01-09] MEDS: METOCLOPRAMIDE 5 MG/ML 2 ML VIAL IVP SCH ×2 (06:15→11:30)
[2023-01-09] MEDS: SODIUM CHLORIDE 0.9% 1,000 ML IV SCH (06:16)
[2023-01-09 06:21] LABS: ALT 14 U/L (4-34); AST 18 U/L (14-36); African American GFR (CKD) 75 (>60 ml/min/1.73 sqM); Albumin 2.7 g/dL (3.5-5.0); Albumin/Globulin Ratio 1.2; Alkaline Phosphatase 41 U/L (38-126); Anion Gap 4 mmol/L; Blood Urea Nitrogen 23 mg/dL (7-17); Calcium 8.5 mg/dL (8.4-10.2); Carbon Dioxide 28 mmol/L (22-30); Chloride 104 mmol/L (98-107); Globulin 2.3 g/dL; Glucose 140 mg/dL (74-99); Non-African American GFR(CKD) 65 (>60 ml/min/1.73 sqM); Potassium 4.2 mmol/L (3.5-5.1); Sodium 136 mmol/L (137-145); Total Bilirubin 0.9 mg/dL (0.2-1.3)
[2023-01-09 07:38] LABS: Glucose,Whole Blood 131 mg/dL (70-110)
[2023-01-09] MEDS: PANTOPRAZOLE 40 MG/10 ML VIAL IVP SCH (07:51)
[2023-01-09] MEDS: INSULIN ASPART (NovoLOG) 100 UNIT/ML VIAL SQ SCH ×2 (07:51→12:40)
[2023-01-09] MEDS: HEPARIN SODIUM,PORCINE/PF 5,000 UNIT/0.5 ML SYRINGE SQ SCH (07:51)
[2023-01-09] MEDS: PIPERACILLIN-TAZOBACTAM 3.375 GM in SODIUM CHLORIDE 0.9% 100 ML IVPB SCH (07:52)
[2023-01-09 08:21] VITALS: BP 102/56; PULSE 58; RESP 16; TEMP 97.8
--- NOTE | 2023-01-09 11:46 | P.PN ---
Subjective Progress Note Date: 01/09/23 (77-year-old female status post laparoscopic appendectomy secondary to acute appendicitis with rupture , localized peritonitis, peritoneal adhesions from prior surgery and ileus. Maintained on IV fluid hydration, NPO. Blood sugars controlled. Pain controlled. Ambulating to bathroom, tolerating exertion well. Denies bowel movement postoperatively, reports passing flatus. Denies chest pain, palpitations or shortness of breath. Blood pressures soft, MAP 71. Maintaining O2 sats in the high 90s on 2 L nasal cannula. Continues on IV antibiotics of Levaquin, Zosyn. Objective - Vital Signs Vital signs: Vital Signs Temp 97.8 F 01/09/23 07:00 Pulse 58 L 01/09/23 07:00 Resp 16 01/09/23 07:00 BP 102/56 01/09/23 07:00 Pulse Ox 98 01/09/23 07:00 FiO2 Intake & Output 01/08/23 01/09/23 01/09/23 18:59 06:59 18:59 Intake Total 1450 Output Total 10 Balance 1440 Weight 58.967 kg Intake: IV 1450 Output: Estimated Blood Loss 10 Other: Voiding Method Toilet Toilet Toilet # Voids 1 1 - Exam GENERAL: Sitting up in bed, alert and oriented x3, no acute distress. HEENT: Normocephalic, atraumatic .Pupils are round and equally reacting to light. EOMI. No scleral icterus. No conjunctival pallor. CARDIOVASCULAR: S1 and S2 present. No murmurs, rubs, or gallops. PULMONARY: Nonlabored, clear to auscultation, no wheezing or crackles. ABDOMEN: Soft, nondistended, status post surgery with minimal tenderness . EXTREMITIES: No cyanosis, clubbing, or pedal edema. NEUROLOGICAL: Cranial nerves II through XII grossly intact. No focal deficits. SKIN: Warm and dry ,No rashes. - Labs CBC & Chem 7: 01/09/23 05:39 01/09/23 05:39 Labs: Abnormal Lab Results - Last 24 Hours (Table) 01/08/23 01/08/23 01/09/23 Range/Units 17:15 20:56 05:39 Neutrophils # 7.8 H (1.3-7.7) k/uL Lymphocytes # 0.4 L (1.0-4.8) k/uL Sodium (137-145) mmol/L BUN (7-17) mg/dL Glucose (74-99) mg/dL POC Glucose (mg/dL) 140 H 174 H (70-110) mg/dL Total Protein (6.3-8.2) g/dL Albumin (3.5-5.0) g/dL 01/09/23 01/09/23 Range/Units 05:39 07:37 Neutrophils # (1.3-7.7) k/uL Lymphocytes # (1.0-4.8) k/uL Sodium 136 L (137-145) mmol/L BUN 23 H (7-17) mg/dL Glucose 140 H (74-99) mg/dL POC Glucose (mg/dL) 131 H (70-110) mg/dL Total Protein 5.0 L (6.3-8.2) g/dL Albumin 2.7 L (3.5-5.0) g/dL Microbiology - Last 24 Hours (Table) 01/07/23 19:20 Blood Culture - Preliminary Blood 01/07/23 19:05 Blood Culture - Preliminary Blood Assessment and Plan Assessment: Acute appendicitis with rupture and localized peritonitis s/p laproscopic appendectomy, peritoneal adhesions from prior surgery, ileus Leukocytosis secondary to the above, resolved Acute hypoxic respiratory failure secondary to the above, suspect postoperative atelectasis, expected outcome. History of hypertension currently normotensive History of asthma with no acute exacerbation Diabetes mellitus type 2 Plan: Continue on current medication regime ,monitoring and symptomatic treatment. Aggressive pulmonary toileting with incentive spirometer ordered. IV fluid hydration, currently nothing by mouth, diet advancement as per surgery. Cultures/path. pending. IV antibiotics. Increase ambulation as tolerated. The impression and plan of care has been dictated as directed. : I performed a history and examination of this patient, discussed the same with the dictator. I agree with the dictator's note ,documented as a scribe. Any additional findings or plans will be noted.
[2023-01-09 12:20] LABS: Glucose,Whole Blood 134 mg/dL (70-110)
--- NOTE | 2023-01-09 15:23 | P.DS ---
Providers Date of admission: 01/08/23 12:21 Expected date of discharge: 01/09/23 Attending physician: Adele Joseph Consults: 01/09/23 07:46 Consult Physician Routine Consulting Provider: Kyle Dumont Consult Reason/Comments: Medical management Do you want consulting provider notified?: Yes Primary care physician: Trudy Cristobal Hospital Course: Discharge diagnosis 1. Acute appendicitis with rupture, localized peritonitis 2. Intra-abdominal peritoneal adhesions from prior surgery 3. Ileus 4. Diabetes type 2 [id number] 5. Diabetes type 2 with hyperglycemia 6. Hypertensive heart disease 7. History of asthma Hospital course The patient is a 77-year-old female who presents with acute appendicitis, 4 days. Patient is status post Robotic-assisted daVinci Xi laparoscopic lysis of adhesions and Robotic-assisted daVinci Xi laparoscopic appendectomy. Patient tolerated surgery well. Her pain is controlled. She is tolerating diet. Her white count is normalized. She is afebrile. She is having flatus. She has been up and ambulating. She is stable for discharge. Physician Dental Professional note has been reviewed by physician. Signing provider agrees with the documented findings, assessment, and plan of care. Patient Condition at Discharge: Stable Plan - Discharge Summary Discharge Rx Participant: No New Discharge Prescriptions: New Ibuprofen [Motrin] 600 mg PO Q8HR PRN #30 tab PRN Reason: Pain Acetaminophen Tab [Tylenol] 1,000 mg PO Q6HR PRN #30 tablet PRN Reason: Pain Continue Aspirin [Adult Low Dose Aspirin EC] 81 mg PO HS Rosuvastatin [Crestor] 10 mg PO W/SUPPER Melatonin 3 mg PO HS Multivitamins, Thera [Multivitamin (formulary)] 1 tab PO DAILY Calcium Carbonate [Calcium] 600 mg PO DAILY Magnesium Oxide [Magnesium] 500 mg PO DAILY Cholecalciferol [Vitamin D3 (25 Mcg = 1000 Iu)] 50 mcg PO DAILY Psyllium Husk [Metamucil] 0.4 gm PO DAILY No Action lisinopriL [Zestril] 5 mg PO W/SUPPER Discharge Medication List Aspirin [Adult Low Dose Aspirin EC] 81 mg PO HS 10/05/21 [History] Melatonin 3 mg PO HS 10/05/21 [History] Rosuvastatin [Crestor] 10 mg PO W/SUPPER 10/05/21 [History] lisinopriL [Zestril] 5 mg PO W/SUPPER 10/05/21 [History] Calcium Carbonate [Calcium] 600 mg PO DAILY 01/07/23 [History] Cholecalciferol [Vitamin D3 (25 Mcg = 1000 Iu)] 50 mcg PO DAILY 01/07/23 [History] Magnesium Oxide [Magnesium] 500 mg PO DAILY 01/07/23 [History] Multivitamins, Thera [Multivitamin (formulary)] 1 tab PO DAILY 01/07/23 [History] Psyllium Husk [Metamucil] 0.4 gm PO DAILY 01/07/23 [History] Acetaminophen Tab [Tylenol] 1,000 mg PO Q6HR PRN #30 tablet 01/09/23 [Rx] Ibuprofen [Motrin] 600 mg PO Q8HR PRN #30 tab 01/09/23 [Rx] Follow up Appointment(s)/Referral(s): Adele Joseph MD [STAFF PHYSICIAN] - 01/10/23 Trudy Cristobal DO [Primary Care Provider] - 1 Week Patient Instructions/Handouts: Laparoscopic Appendectomy (DC) Activity/Diet/Wound Care/Special Instructions: No lifting over 4 pounds in 4 weeks You May shower. No bath tub soaks for two weeks Use Tylenol and ibuprofen scheduled for the next 24-48 hours for best pain relie f. Use ice along incisions for the today to prevent swelling. Discharge Disposition: HOME SELF-CARE
== END 2023-01-09 15:36 | disposition home or self-care (01) | DRG 335 ==
LOC: EC 15:04 → 6NMEDSUR 20:23 → OBSVTOIN 01-08 12:21
PROVIDERS: ADMIT Surgery Plastic and Reconstructive Surgery; ATTEND Surgery Plastic and Reconstructive Surgery
PROC: 8E0W4CZ Robotic Assisted Procedure of Trunk Region, Percutaneous Endoscopic Approach (ICD-10-PCS; principal; 2023-01-08 10:00)
PROC: 0DTJ4ZZ Resection of Appendix, Percutaneous Endoscopic Approach (ICD-10-PCS; principal; 2023-01-08 10:00)
PROC: 0DNU4ZZ Release Omentum, Percutaneous Endoscopic Approach (ICD-10-PCS; principal; 2023-01-08 10:00)
DX: K35.32 Acute appendicitis with perforation, localized peritonitis, and gangrene, without abscess (principal); J96.01 Acute respiratory failure with hypoxia; K56.7 Ileus, unspecified; J98.11 Atelectasis; I11.9 Hypertensive heart disease without heart failure; E11.65 Type 2 diabetes mellitus with hyperglycemia; J45.909 Unspecified asthma, uncomplicated; E78.5 Hyperlipidemia, unspecified; K66.0 Peritoneal adhesions (postprocedural) (postinfection); K38.1 Appendicular concretions; Z79.82 Long term (current) use of aspirin; Z79.899 Other long term (current) drug therapy; Z88.0 Allergy status to penicillin; Z88.5 Allergy status to narcotic agent; Z88.2 Allergy status to sulfonamides
CPT/HCPCS: 36415; 74177; 80053; 81001; 83036; 83605; 83690; 85025; 87040; 87070; 87205; 88304; 93005; 96361; 96365; 96366; 96368; 96375; 99285

== ENCOUNTER → 2023-04-04 | Outpatient (CLI) | payer MEDICARE ==
--- NOTE | 2023-04-05 10:09 | MM ---
Reason for Exam: Screening (asymptomatic). Last mammogram was performed 1 year(s) and 6 month(s) ago. Patient History: Menarche at age 15. First Full-Term at age 22. Left ovary removed at age 53. Right ovary removed at age 53. Hysterectomy at age 53. Postmenopausal. Patient used Estrogen for 3 year. Paternal aunt had breast cancer. Risk Values: Taty 5 year model risk: 1.6%. NCI Lifetime model risk: 3.4%. Prior Study Comparison: 02/13/2002 Bilateral Screening Mammogram, [facility]. 09/22/2021 Bilateral Screening Mammogram, [facility]. 09/28/2021 Bilateral Diagnostic Mammogram, [facility]. Tissue Density: There are scattered fibroglandular densities. Findings: Analyzed By CAD. There is no suspicious group of microcalcifications or new suspicious mass in either breast. Previously seen nodules are not well appreciated on today's exam. Overall Assessment: Benign, BI-RAD 2 Management: Screening Mammogram of both breasts in 1 year. A clinical breast exam by your physician is recommended on an annual basis and results should be correlated with mammographic findings. Note on Taty scores and lifetime risk: 1. A Taty score greater than 3% is considered moderate risk. If this is the case, consider specialist referral to assess eligibility for a risk reducing agent. If overall lifetime risk for the development of breast cancer is 20% or higher, the patient may qualify for future screening with alternating mammogram and breast MRI. Electronically signed and approved by: Yash Alex D.O.
== END | disposition home or self-care (01) ==
LOC: RADMAMWWP 15:09
PROVIDERS: ATTEND Family Medicine
DX: Z12.31 Encounter for screening mammogram for malignant neoplasm of breast (principal); Z78.0 Asymptomatic menopausal state; Z80.3 Family history of malignant neoplasm of breast
CPT/HCPCS: 77063; 77067